=== PATIENT | female | born 2000 | race Caucasian/White ===

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

== ENCOUNTER 2022-12-30 21:41 | Emergency (ER) | payer OTHER ==
[2022-12-30 21:51] VITALS: BP 132/78; PULSE 68; RESP 17; TEMP 97.9; BMI 25.0
[2022-12-31] MEDS ORDERED: ACETAMINOPHEN 325 MG TABLET (FP) PO ONE (00:14)
[2022-12-31] MEDS ORDERED: ACETAMINOPHEN 325 MG TABLET (FP) ONE (00:45)
== END 2022-12-31 01:56 | disposition home or self-care (01) ==
LOC: JER 21:41
DX: S09.90XA Unspecified injury of head, initial encounter (principal); M54.2 Cervicalgia; M54.9 Dorsalgia, unspecified; W13.2XXA Fall from, out of or through roof, initial encounter; Y93.E1 Activity, personal bathing and showering; Y92.012 Bathroom of single-family (private) house as the place of occurrence of the external cause
CPT/HCPCS: 70450-TC; 72100-TC-FY; 72125-TC; 84703; 99285-25